=== PATIENT | male | born 1970 | race Two or more races ===

== ENCOUNTER 2024-06-18 00:17 | Inpatient (IN) | payer MEDICAID ==
[~2024-06-18] VITALS: Ht 182.9 cm; Wt 98.0 kg
[2024-06-18 01:36] LABS: BASOPHILS % (AUTO) 0.6 % (0.0-2.0); EOSINOPHILS % (AUTO) 6.1 % (1.0-6.0); HEMATOCRIT 39.4 % (41-53); LYMPHOCYTES # (AUTO) 2.6 K/uL (1.0-4.8); LYMPHOCYTES % (AUTO) 42.5 % (22.0-44.0); MEAN CORPUSCULAR HEMOGLOBIN 31.9 pg (26.0-34.0); MEAN CORPUSCULAR HGB CONC 33.1 G/dL (31.0-37.0); MEAN CORPUSCULAR VOLUME 96 fL (80-100); MONOCYTES # (AUTO) 0.7 K/uL (0.1-1.0); MONOCYTES % (AUTO) 10.7 % (2.0-9.0); NEUTROPHILS # (AUTO) 2.5 K/uL (1.8-7.7); NEUTROPHILS % (AUTO) 40.1 % (40.0-70.0); PLATELET COUNT (AUTO) 207 K/uL (150-450); RED BLOOD CELL COUNT(AUTO) 4.08 MIL/uL (4.50-5.90); RED CELL DISTRIBUTION WIDTH 14.6 % (11.5-14.5); WHITE BLOOD COUNT (AUTO) 6.1 K/uL (4.5-11.0)
[2024-06-18 01:42] LABS: ALCOHOL, BLOOD (SERUM) 24 mg/dL (0-10)
[2024-06-18 01:45] LABS: ANION GAP 4 mmol/L (8-16); CALCIUM, TOTAL 8.5 mg/dL (8.8-10.5); CARBON DIOXIDE 31 mmol/L (22-29); CHLORIDE 105 mmol/L (98-107); CREATININE 0.83 mg/dL (0.60-1.30); GLOMERULAR FILTR. RATE CALC > 60 mL/min (>60); GLUCOSE,RANDOM 85 mg/dL (70-110); POTASSIUM 3.9 mmol/L (3.5-5.1); SODIUM SERUM 140 mmol/L (136-145); UREA NITROGEN, BLOOD 14 mg/dL (7-18)
[2024-06-18 02:27] LABS: COVID AG,FIA SOURCE NASAL SWAB
[2024-06-18] MEDS: OLANZapine 5 MG TABLET PO ONE (02:39)
[2024-06-18 02:41] LABS: SARS-COV2 (COVID) ANTIGEN,FIA Negative (Negative)
[2024-06-18] MEDS ORDERED: HALOPERIDOL 5 MG TABLET PO PRN (03:15)
[2024-06-18] MEDS ORDERED: ZOLPIDEM TARTRATE 10 MG TABLET PO PRN (03:15)
[2024-06-18 03:37] LABS: APPEARANCE,URINE CLEAR (CLEAR); BILIRUBIN,URINE NEGATIVE (NEGATIVE); COLOR,URINE LIGHT YELLOW (YELLOW); GLUCOSE, URINE (UA) NEGATIVE (NEGATIVE); KETONES,URINE NEGATIVE (NEGATIVE); LEUKOCYTE ESTERASE ,URINE NEGATIVE (NEGATIVE); NITRATE,URINE NEGATIVE (NEGATIVE); OCCULT BLOOD,URINE NEGATIVE (NEGATIVE); PROTEIN,URINE NEGATIVE (NEGATIVE); UROBILINOGEN,URINE <=1.0 mg/dL (<=1.0)
[2024-06-18 03:44] LABS: ALCOHOL, URINE DRUG SCREEN POSITIVE (NEGATIVE); AMPHET/METH SCREEN,URINE POSITIVE (NEGATIVE); BARBITURATE SCREEN, URINE NEGATIVE (NEGATIVE); BENZODIAZEPINES SCREEN,URINE NEGATIVE (NEGATIVE); CANNABINOID SCREEN,URINE NEGATIVE (NEGATIVE); COCAINE SCREEN,URINE NEGATIVE (NEGATIVE); METHADONE SCREEN, URINE NEGATIVE (NEGATIVE); OPIATE SCREEN,URINE NEGATIVE (NEGATIVE); PHENCYCLIDINE SCREEN,URINE NEGATIVE (NEGATIVE)
[2024-06-18 14:09] VITALS: BP 103/65; PULSE 60; RESP 17; TEMP 97.8; O2SAT 98
[2024-06-18 22:18] VITALS: BP 102/57; PULSE 64; RESP 18; TEMP 97.3; O2SAT 98
[2024-06-19 08:08] VITALS: BP 106/60; PULSE 76; RESP 17; TEMP 97.7; O2SAT 98
[2024-06-19] MEDS ORDERED: ALBUTEROL SULFATE HFA 90 MCG/PUFF 8 GM INHALER IH PRN (08:30)
[2024-06-19] MEDS ORDERED: LOPERAMIDE HCL 2 MG CAPSULE PO PRN (08:30)
[2024-06-19] MEDS ORDERED: MAGNESIUM HYDROXIDE SUSPENSION 30 ML UDCUP PO PRN (08:30)
[2024-06-19] MEDS ORDERED: NICOTINE 14 MG/24 HOUR PATCH TD PRN (08:30)
[2024-06-19] MEDS ORDERED: CloNIDine HCL 0.1 MG TABLET PO PRN (08:30)
[2024-06-19] MEDS ORDERED: MAG HYDROX/ALUMINUM HYD/SIMETH ES 30 ML SUSPENSION UDCUP PO PRN (08:30)
[2024-06-19] MEDS ORDERED: IBUPROFEN 400 MG TABLET PO PRN (08:30)
[2024-06-19] MEDS ORDERED: DOCUSATE SODIUM 100 MG CAPSULE PO PRN (08:30)
[2024-06-19] MEDS ORDERED: ONDANSETRON HCL 4 MG TABLET PO PRN (08:30)
[2024-06-19] MEDS ORDERED: GuaiFENesin/D-METHORPHAN [SUGAR-FREE] 200-20MG/10 ML SYRUP UDCUP PO PRN (08:30)
[2024-06-19] MEDS ORDERED: PETROLATUM,WHITE 28 GM JELLY TP PRN (08:30)
[2024-06-19] MEDS ORDERED: ACETAMINOPHEN 325 MG TABLET PO PRN (08:30)
[2024-06-19] MEDS: RisperiDONE 1 MG TABLET PO SCH (20:24)
[2024-06-19 20:36] VITALS: BP 98/69; PULSE 67; RESP 18; TEMP 97.2; O2SAT 100
[2024-06-20 08:43] LABS: HEMOGLOBIN A1C 5.4 % (3.8-5.6)
[2024-06-20 08:55] LABS: CHOL/HDL RATIO 3.4 (4.2-7.3); THYROID STIMULATING HORMONE 1.62 uIU/mL (0.36-3.74)
[2024-06-20 09:28] VITALS: BP 123/81; PULSE 80; RESP 16; TEMP 98; O2SAT 100
[2024-06-20 19:48] VITALS: BP 122/65; PULSE 82; RESP 18; TEMP 97.8; O2SAT 98
[2024-06-20 20:14] VITALS: BP 122/65; PULSE 82; RESP 18; TEMP 97.8; O2SAT 98
[2024-06-20] MEDS: LORazepam 2 MG TABLET PO PRN (20:17)
[2024-06-20] MEDS: GABAPENTIN 300 MG CAPSULE PO SCH (20:17)
[2024-06-21 08:29] VITALS: BP 104/62; PULSE 91; RESP 16; TEMP 97.7; O2SAT 95
[2024-06-21 23:04] VITALS: BP 124/69; PULSE 90; RESP 18; TEMP 97.7
[2024-06-22 08:22] VITALS: BP 117/63; PULSE 80; RESP 16; TEMP 97.2; O2SAT 98
[2024-06-22 20:21] VITALS: BP 95/55; PULSE 89; RESP 17; TEMP 98.2; O2SAT 98
[2024-06-23] MEDS: NAPROXEN 375 MG TABLET PO SCH (06:23)
[2024-06-23 06:26] VITALS: BP 122/63; PULSE 92; RESP 18; TEMP 98.4; O2SAT 97
[2024-06-23] MEDS: DICLOFENAC SODIUM 1% 100 GM GEL [4GM] TP SCH (08:13)
[2024-06-23 08:14] VITALS: BP 113/51; PULSE 86; RESP 17; TEMP 97.7; O2SAT 95
[2024-06-23] MEDS ORDERED: RISP-31 PO (10:33)
[2024-06-23] MEDS ORDERED: GABA-1181 PO ×2 (10:33→10:41)
[2024-06-23] MEDS ORDERED: NAPR-1193 PO (10:41)
[2024-06-23] MEDS ORDERED: DICL100G60 TP (10:47)
[2024-06-23] MEDS ORDERED: RISP1TAB48 PO (10:57)
== END 2024-06-23 14:43 | disposition home or self-care (01) | DRG 750 ==
LOC: EMS 00:19 → B3A 11:48
PROVIDERS: ADMIT Psychiatry & Neurology Psychiatry; ATTEND Psychiatry & Neurology Psychiatry
PROC: GZHZZZZ Group Psychotherapy (ICD-10-PCS; principal; 2024-06-19)
DX: F20.0 Paranoid schizophrenia (principal); R45.850 Homicidal ideations; F12.10 Cannabis abuse, uncomplicated; F15.10 Other stimulant abuse, uncomplicated; M54.30 Sciatica, unspecified side; Z20.822 Contact with and (suspected) exposure to COVID-19; G47.00 Insomnia, unspecified; D64.9 Anemia, unspecified; Z59.00 Homelessness unspecified; F10.10 Alcohol abuse, uncomplicated; Z79.899 Other long term (current) drug therapy; Z87.891 Personal history of nicotine dependence
CPT/HCPCS: 80048; 80061; 80307; 81003; 83036; 84443; 85025; 99285; G0480